=== PATIENT | female | born 1970 | race Caucasian/White ===

== ENCOUNTER 2021-06-24 05:47 | Day surgery (SDC) | payer BC ==
[2021-06-23 16:40] LABS: BASOPHILS # (AUTO) 0.1 X10'3 (0-0.2); BASOPHILS % (AUTO) 0.6 % (0-1); EOSINOPHILS # (AUTO) 0.2 X10'3 (0-0.9); EOSINOPHILS % (AUTO) 2.1 % (0-6); LYMPHOCYTES # (AUTO) 2.1 X10'3 (1.1-4.8); LYMPHOCYTES % (AUTO) 24.2 % (21-51); MEAN CORPUSCULAR HEMOGLOBIN 27.9 PG (27.0-31.0); MEAN CORPUSCULAR HGB CONC 33.7 g/dL (33.0-36.5); MEAN CORPUSCULAR VOLUME 82.7 FL (78-98); MEAN PLATELET VOLUME 8.1 FL (7.4-10.4); MONOCYTES # (AUTO) 0.6 X10'3 (0-0.9); MONOCYTES % (AUTO) 7.2 % (2-12); NEUTROPHILS # (AUTO) 5.7 X10'3 (1.8-7.7); NEUTROPHILS % (AUTO) 65.9 % (42-75); PRE OP HEMATOCRIT 38.3 % (35.0-45.0); PRE OP HEMOGLOBIN 12.9 g/dL (12.0-16.0); PRE OP PLATELET COUNT 315 X10'3 (140-440); RED BLOOD COUNT 4.63 X10'6 (4.20-5.60); RED CELL DISTRIBUTION WIDTH 13.6 % (11.5-14.5)
[2021-06-23 16:59] LABS: ALBUMIN 3.2 G/DL (3.4-5.0); ALBUMIN/GLOBULIN RATIO 0.8 (1.1-1.5); ALKALINE PHOSPHATASE 104 IU/L (46-116); BLOOD UREA NITROGEN 16 MG/DL (7-18); BUN/CREATININE RATIO 22.5 (6.6-38.0); CALCIUM 8.8 MG/DL (8.5-10.1); CHLORIDE 107 MMOL/L (99-107); CREATININE 0.71 MG/DL (0.40-0.90); PRE OP ALT 32 U/L (30-65); PRE OP ANION GAP 7 (8-16); PRE OP AST 20 U/L (10-37); PRE OP BILIRUB, TOTAL 0.2 MG/DL (0.0-1.0); PRE OP GLUCOSE 109 MG/DL (70-104); PRE OP POTASSIUM 3.9 MMOL/L (3.4-5.1); PRE OP SODIUM 141 MMOL/L (135-145); TOTAL CARBON DIOXIDE 26.8 MMOL/L (24-32); TOTAL PROTEIN 7.1 G/DL (6.4-8.2); eGFR 86 ML/MIN
[~2021-06-24] VITALS: Ht 160 cm; Wt 121.0 kg
[2021-06-24] VITALS (17 sets, daily range): BP systolic 106–163; BP diastolic 46–98
[~2021-06-24 05:47] MED LIST: CELE-85 PO; ESCI20TA39 PO; acetaminophen 325mg tablet PO ONE; cefazolin/dext.iso 2gm/100ml IV ONE; celeCOXIB 100mg capsule PO ONE; famotidine 20mg tablet PO ONE; gabapentin 300mg capsule PO ONE; metoclopramide 5 mg/ml inj IV ONE; oxyCODONE SR 10mg (sust. release) tab -2 tabs (20mg) PO ONE; tranexamic acid inj. 1,000 MG in normal saline 100 ML IV ONE; vancomycin 1,500 MG in NS 300ml IV soln IV ONE
[2021-06-24] MEDS ORDERED: LIDOcaine 1% (10mg/ml) 2ml vial ONE (06:22)
[2021-06-24] MEDS: ringers solution, lacted 1,000 ML IV SCH ×3 (06:29→12:54)
[2021-06-24] MEDS ORDERED: ondansetron/PF 4mg/2ml inj IV PRN ×2 (06:30→09:00)
[2021-06-24] MEDS ORDERED: HYDROmorphone inj. 0.5 MG/0.5 ML DISP.SYRIN IV PRN (06:30)
[2021-06-24] MEDS ORDERED: diphenhydrAMINE 25mg capsule PO PRN ×2 (06:30)
[2021-06-24] MEDS ORDERED: HYDROmorphone 1 mg/ml syringe IV PRN (06:30)
[2021-06-24] MEDS: potassium cl 20mEq in 1/2 NS 1,000 ML IV SCH ×3 (06:30→22:30)
[2021-06-24] MEDS ORDERED: acetaminophen 325mg tablet PO PRN (06:30)
[2021-06-24] MEDS ORDERED: magnesium hydroxide 30ml (MOM) UD suspension PO PRN (06:30)
[2021-06-24] MEDS ORDERED: bisacodyl 10mg suppository rectal RC PRN (06:30)
[2021-06-24] MEDS ORDERED: oxyCODONE/APAP 10/325mg tablet PO PRN (06:30)
[2021-06-24] MEDS ORDERED: cloNIDine hcl/PF 100mcg/ml inj ONE (07:36)
[2021-06-24] MEDS ORDERED: epiNEPHrine 1 mg/ml inj ONE (07:36)
[2021-06-24] MEDS ORDERED: ketorolac trometh. 30mg/ml inj. ONE (07:36)
[2021-06-24] MEDS ORDERED: ROPIVAcaine 0.5% (5mg/ml) 30ml vial ONE ×2 (07:36→09:34)
[2021-06-24] MEDS ORDERED: fentaNYL/PF 50MCG/1 ML 2ML syringe ONE (07:44)
[2021-06-24] MEDS ORDERED: MIDAZolam 1mg/ml 10ml vial ONE (07:44)
[2021-06-24] MEDS ORDERED: vancomycin 1,000mg inj ONE (07:48)
[2021-06-24] MEDS: gabapentin 300mg capsule PO SCH ×3 (08:00→23:05)
[2021-06-24] MEDS: aspirin 325mg tablet PO SCH (08:30)
[2021-06-24] MEDS ORDERED: morphine 2 MG/ML inj. syringe IV PRN (09:00)
[2021-06-24] MEDS ORDERED: meperidine/PF 25mg/ml syringe IV PRN ×3 (09:00)
[2021-06-24] MEDS ORDERED: ROPIVAcaine 0.2%/PF PUMP/bolus 545 ML ADDCANAL SCH (09:00)
[2021-06-24] MEDS ORDERED: morphine 4 MG/ML inj SYRINge IV PRN (09:00)
[2021-06-24] MEDS ORDERED: proCHLORperazine 10 MG/2 ml inj IV PRN (09:00)
[2021-06-24] MEDS ORDERED: ROPIVAcaine 0.2% (10 MG/5 ML) BOLUS INJECTION ADDCANAL PRN (09:00)
[2021-06-24] MEDS ORDERED: ringers solution, lacted 1,000 ML IV SCH (09:00)
[2021-06-24] MEDS ORDERED: propofol inj 20 ML IV ONE ×2 (09:34)
--- NOTE | 2021-06-24 10:10 | NUR ---
SPINAL LEVEL L1 DENIES PAIN NANNETTE DRAIN INTACT Addendum: 06/24/21 at 1118 by Saumya Larson RN Amended: Links added.
--- NOTE | 2021-06-24 10:51 | NUR ---
PT MORE AWAKE SPINAL LEVEL L2 ABLE TO MOVE FEET STATES FEELS NUMB, STATES SPOT PAIN IN BACK OF KNEE 5/10 MED WITH MORPHINE 4MG AND SET UP THE ON-Q PER ORDERS PT STATES DRY SIPS OF WATER GIVEN STEPHEN WELL. NO DISTRESS CONT TO MONITOR. Addendum: 06/24/21 at 1055 by Saumya Larson RN Amended: Links added.
--- NOTE | 2021-06-24 11:07 | NUR ---
PT MORE AWAKE STEPHEN POS VSS NO DISTRESS SPINAL LEVEL MOVING LOWER EXTR STATES COMFORTABLE MEETS CRITERIA TO DC TO ROOM REPORT CALLED TO NURSE PT TRANSPORT VIA BED. Addendum: 06/24/21 at 1108 by Saumya Larson RN Amended: Links added.
[2021-06-24] MEDS ORDERED: tranexamic acid 1gm/0.7% sal. 100 ML IV ONE (12:30)
--- NOTE | 2021-06-24 12:30 | NUR ---
Pt c/o pain increasing to LLE, OnQ increased from 4ml to 8ml and pt reinstructed on demand usage with pt verbalizing understanding. Will continue to monitor.
[2021-06-24] MEDS: oxyCODONE/APAP 10/325mg tablet PO PRN ×3 (13:02→23:49)
--- NOTE | 2021-06-24 13:24 | NUR ---
PT STATES SHE RECEIVED GABAPENTIN 0800 DOSE THIS MORNING PREOP, AND ASPIRIN WAS HELD FOR SURGERY. WILL CONTINUE TO MONITOR.
[2021-06-24] MEDS: cefazolin/dext.iso 2gm/100ml 100 ML IV SCH ×2 (17:11→23:47)
--- NOTE | 2021-06-24 18:10 | NUR ---
Problems reprioritized. Patient report given, questions answered & plan of care reviewed with Marleen CAMPBELL.
--- NOTE | 2021-06-24 18:55 | NUR ---
Patient in room [facility]. I have received report from Monse CAMPBELL and had the opportunity to ask questions and assume patient care.
[2021-06-24] MEDS: ascorbic acid 500mg tablet PO SCH (19:10)
[2021-06-24] MEDS ORDERED: sennosides 8.6mg tablet PO SCH (21:00)
[2021-06-25] MEDS: potassium cl 20mEq in 1/2 NS 1,000 ML IV SCH (02:25)
[2021-06-25] MEDS: oxyCODONE/APAP 10/325mg tablet PO PRN ×3 (04:39→13:20)
--- NOTE | 2021-06-25 06:14 | NUR ---
Problems reprioritized. Patient report given, questions answered & plan of care reviewed with Monse CAMPBELL.
--- NOTE | 2021-06-25 06:16 | NUR ---
Patient in room [facility]. I have received report from Marleen CAMPBELL and had the opportunity to ask questions and assume patient care.
[2021-06-25 06:29] LABS: BASOPHILS % (AUTO) 0.3 % (0-1); EOSINOPHILS # (AUTO) 0.1 X10'3 (0-0.9); EOSINOPHILS % (AUTO) 0.9 % (0-6); HEMATOCRIT 33.6 % (35.0-45.0); HEMOGLOBIN 11.3 g/dl (12.0-16.0); LYMPHOCYTES # (AUTO) 1.1 X10'3 (1.1-4.8); LYMPHOCYTES % (AUTO) 11.4 % (21-51); MEAN CORPUSCULAR HEMOGLOBIN 27.9 PG (27.0-31.0); MEAN CORPUSCULAR HGB CONC 33.6 g/dL (33.0-36.5); MEAN CORPUSCULAR VOLUME 83.1 FL (78-98); MEAN PLATELET VOLUME 8.7 FL (7.4-10.4); MONOCYTES # (AUTO) 0.8 X10'3 (0-0.9); MONOCYTES % (AUTO) 8.1 % (2-12); NEUTROPHILS # (AUTO) 7.4 X10'3 (1.8-7.7); NEUTROPHILS % (AUTO) 79.3 % (42-75); PLATELET COUNT 261 X10'3 (140-440); RED BLOOD COUNT 4.05 X10'6 (4.20-5.60); RED CELL DISTRIBUTION WIDTH 13.7 % (11.5-14.5); WHITE BLOOD COUNT 9.4 X10'3 (4.5-11.0)
[2021-06-25 06:59] LABS: ANION GAP 10 (8-16); CHLORIDE 106 MMOL/L (99-107); POTASSIUM 4.2 MMOL/L (3.5-5.1); SODIUM 140 MMOL/L (135-145); TOTAL CARBON DIOXIDE 23.9 MMOL/L (24-32)
[2021-06-25 08:00] VITALS: BP 160/63
[2021-06-25] MEDS ORDERED: multivitamins, therapeutics tablet PO SCH (08:00)
[2021-06-25] MEDS ORDERED: ESCITALOPRAM OXALATE 5 MG TABLET PO SCH (08:00)
[2021-06-25] MEDS: ascorbic acid 500mg tablet PO SCH (08:42)
[2021-06-25] MEDS: aspirin 325mg tablet PO SCH (08:42)
[2021-06-25] MEDS: gabapentin 300mg capsule PO SCH ×2 (08:43→13:20)
[2021-06-25 12:00] VITALS: BP 160/65
--- NOTE | 2021-06-25 13:37 | NUR ---
Joint Surgery Consult: Pt s/p L knee surgery this admit. Pt seen by BONIFACIO for written/verbal high protein ed w/ RD contact information provided. BONIFACIO encouraged pt to contact dietitian's office if further questions/concerns this admit. Addendum: 06/25/21 at [address] Amended: Links added.
--- NOTE | 2021-06-25 16:30 | NUR ---
Pt stable and appropriate for discharge. PIV dc'd cannula intact. Reviewed with patient all d/c instructions, meds, OnQ, Darius dressing/wound care and follow up with pt given opportunity to ask questions, answers provided and pt verbalizing understanding. Pt to phone Dr Acevedo with any questions, concerns, s/sx of complications/infection or return to nearest ED. Pt states she has all personal belongings. Pt escorted to front lobby by staff member via w/c. D/C'd home in private vehicle driven by family member.
[2021-06-25] MEDS ORDERED: celeCOXIB 100mg capsule PO SCH (20:00)
== END 2021-06-25 16:13 | disposition home or self-care (01) ==
LOC: PAS 05:47 → SUR 3N 06:34 → PAS 06-25 16:13
PROVIDERS: ATTEND Orthopaedic Surgery
DX: M17.12 Unilateral primary osteoarthritis, left knee (principal); K21.9 Gastro-esophageal reflux disease without esophagitis; G89.18 Other acute postprocedural pain; F32.9 Major depressive disorder, single episode, unspecified; E66.01 Morbid (severe) obesity due to excess calories; Z68.41 Body mass index [BMI] 40.0-44.9, adult; Z90.49 Acquired absence of other specified parts of digestive tract; Z98.890 Other specified postprocedural states; Z79.899 Other long term (current) drug therapy; Z79.01 Long term (current) use of anticoagulants; Z72.89 Other problems related to lifestyle; Z88.5 Allergy status to narcotic agent; Z96.651 Presence of right artificial knee joint; Z87.442 Personal history of urinary calculi
CPT/HCPCS: 27447; 36415; 64448; 73560; 76937; 80051; 80053; 82948; 85025; 86885; 86900; 86901; 87081; 93005; 97110; 97116; 97161; 97530; 97535; C1713; C1776; J0171; J0735; J1885; J2001; J2250; J2270; J2704; J2765; J2795; J3010; J3370; J7040; J7120; Z7506; Z7508; Z7512; A4215; A6449; A7000; G0378; J3480